=== PATIENT | male | born 1985 | race Caucasian/White ===

== ENCOUNTER 2022-09-28 06:58 | Emergency (ER) | payer MEDICAID, SELFPAY ==
[2022-09-28 07:00] VITALS: BP 136/84; PULSE 66; RESP 15; TEMP 36; O2SAT 96; BMI 32.8
--- NOTE | 2022-09-28 07:19 | EDS_ITS ---
HPI History of Present Illness Chief Complaint: General Illness Informant: patient Onset/Context/Timing Onset: Weeks (1) Context: Gradual Onset Timing: Intermittent Quality: Numbness Location: Bilateral arms Worsened by: Nothing Relieved by: Nothing Narrative Narrative: Patient presents with bilateral arm numbness dizziness, and nausea that has been getting worse over the past 2 days. Patient states he had numbness in his left arm that started approximately 1 week ago. Patient states it is now spread to his right arm for the past couple days. Patient states it is intermittent. Patient states nothing makes it better nothing makes it worse. Patient states he feels lightheaded and dizzy. Patient states he had 1 episode of vomiting a couple days ago. Patient denies any hematemesis or coffee-ground emesis. Patient denies any weakness. Patient denies any headaches. Patient denies any visual changes. [facility] Medical History (Updated 09/28/22 @ 09:[address] Edwin Hayes DO) Asthma Dental infection Home Medications NK 09/28/22 [History Last Taken Unknown] Allergy/AdvReac Type Severity Reaction Status Date / Time amoxicillin Allergy Rash Verified 09/28/22 06:59 Family History Other Asthma Surgical History no surgical history no surgical history Social History Smoking Status: Never smoker alcohol intake: current ROS ROS ED Constitutional Constitutional ED: Denies chills or fever(s) Eyes Eyes: Denies blurry vision or change in vision ENT ENT ED: Denies rhinorrhea or sore throat Cardiovascular Cardiovascular: Denies chest pain or palpitations Respiratory/Chest Respiratory/Chest: Denies cough or dyspnea Gastrointestinal Gastrointestinal: Reports nausea and vomiting Genitourinary Genitourinary ED: Denies dysuria or hematuria Musculoskeletal Musculoskeletal: Denies back pain or neck pain Integumentary Denies abscess or rash Neurologic Neurologic: Reports paresthesias RUE and LUE; Denies headache(s) or weakness Allergic/Immunologic Allergic/Immunologic ED: Denies mouth swelling or urticaria EXAM Physical Exam Const Vital Signs: 09/28/22 07:00 09/28/22 07:03 Temperature 96.8 F L Temperature Source Temporal Pulse Rate 66 Respiratory Rate 15 Respiratory Effort Normal Respiratory Pattern Normal Blood Pressure 136/84 H Blood Pressure Mean 101 Pulse Ox 96 Oxygen Delivery Method Room Air Positive well nourished and well developed General Appearance ED: well developed HEENT Reports moist mucous membranes Neck supple and no JVD Resp normal respiratory effort and clear to auscultation bilaterally Cardio regular rate, regular rhythm and no murmurs GI normal to inspection, nondistended, normoactive bowel sounds and non-tender Palpation: soft Extremity normal to inspection General Extremety ED: Negative for edema or tenderness General Extremity: Negative for edema Neuro oriented x3, CN's II-XII intact bilaterally and no sensory deficits noted Sensorium / Orientation: alert Motor Exam: strength 5/5 throughout Psych mental status grossly normal Skin no rashes or lesions noted MDM MDM MDM Narrative Medical decision making narrative: Differential diagnosis includes electrolyte abnormality, neuropathy, radiculopathy, cervical myelopathy, anemia, and infection. Since his paresthesias are in a stocking glove distribution, I do not feel this is from an acute stroke. CBC will be obtained to assess for leukocytosis and anemia. Comprehensive metabolic profile will be obtained to assess for renal function, hepatic function, and electrolyte abnormality. CT scan of the cervical spine will be obtained to assess for cervical myelopathy and radiculopathy. Lab Data Attestation: I reviewed the patient's lab results. Lab results narrative: CBC was reviewed and was within normal limits. PT was INR was reviewed and was normal. Comprehensive metabolic profile was reviewed and was essentially within normal limits. Labs: Laboratory Results - last 24 hr 09/28/22 09/28/22 09/28/22 07:40 07:40 07:40 WBC 5.8 RBC 4.83 Hgb 14.6 Hct 44.3 MCV 91.7 MCH 30.2 MCHC 33.0 RDW Std Deviation 40.3 RDW Coeff of Shorty 12.1 Plt Count 235 MPV 9.9 Immature Gran % (Auto) 0.500 Neut % (Auto) 41.0 L Lymph % (Auto) 44.4 H [place] % (Auto) 9.4 Eos % (Auto) 4.2 Baso % (Auto) 0.5 Absolute Neuts (auto) 2.4 Absolute Lymphs (auto) 2.56 Nucleated RBC % 0 PT 12.9 INR 1.0 Sodium 139 Potassium 4.4 Chloride 106 Carbon Dioxide 28.0 Anion Gap 5 BUN 20 H Creatinine 1.20 Estim Creat Clear Calc 90.71 Est GFR (MDRD) Af Amer 86 Est GFR (MDRD) Non-Af 71 BUN/Creatinine Ratio 16.7 Glucose 111 H Calcium 8.8 Total Bilirubin 0.50 AST 23 ALT 28 Alkaline Phosphatase 64 Total Protein 7.4 Albumin 3.9 Globulin 3.5 Albumin/Globulin Ratio 1.1 Radiography Diagnostic Testing: Clinical Impression(s) from Imaging Studies Cervical Spine CT 09/28/22 07:25 IMPRESSION: Posterior spondylosis at the C5-C6 and C6-C7 levels central and to the left-sided midline as described. The bilateral neural foramina are patent. Electronically Signed: Sundeep Lin MD at 8:23 EDT , CT scan of the cervical spine was obtained. There is no acute fracture. There is some degenerative changes at C5-C6 and C6-C7 in the midline and to the left. The neuroforamina are intact. This was interpreted by the radiologist and was also independently reviewed by myself. Treatment and Re-Evaluation :: Patient was given IV fluids. Patient is feeling better on reevaluation. Patient was advised of his findings. Patient was instructed to take Tylenol or ibuprofen as needed for any pain. Patient was instructed to follow-up with his primary care physician in 5 to 7 days. Patient was also advised that he may need to see a bioinformatics support specialist regarding the degenerative changes of the cervical spine. Patient understands and is agreeable with the plan. All questions were answered. Discharge Plan Triage Chief Complaint: General Illness ED Provider: Edwin Hayes Dx/Rx/DC Orders Clinical Impression: Paresthesias, Dizziness, nonspecific Instructions: ED Paraesthesias Prescriptions: No Action NK Primary Care Provider: Care Physician,No Primary Referrals: Care Physician,No Primary [Primary Care Provider] - 5-7 Days Disposition Disposition: Home, Self Care
--- NOTE | 2022-09-28 07:25 | CT_ITS ---
STUDY: CT CERVICAL SPINE WITHOUT CONTRAST REASON FOR EXAM: Male, 37 years old. 2 a day history left arm numbness. RADIATION DOSAGE (If Supplied By Facility): CTDIvol = ( 28.51 ) mGy, DLP = ( 667.66 ) mGycm TECHNIQUE: High resolution transaxial imaging was performed without contrast material. Sagittal and coronal images were reconstructed. Individualized dose optimization techniques were used for this CT. COMPARISON: None FINDINGS: Normal craniovertebral junction. Normal anterior atlantoaxial articulation. Normal odontoid process. There is straightening of the normal cervical lordosis. Normal vertebral bodies and posterior osseous elements. C2-3: Normal endplates. Normal disc height and morphology. Normal central canal and intervertebral neuroforamina. C3-4: Normal endplates. Normal disc height and morphology. Normal central canal and intervertebral neuroforamina. C4-5: Normal endplates. Normal disc height and morphology. Normal central canal and intervertebral neuroforamina. C5-6: Moderate size posterior spondylosis central and to the left side of the midline causing deformity of the thecal sac. C6-7: Moderate size central and left lateral posterior spondylosis causing deformity of the thecal sac. The neural foramina are patent. C7-T1: Normal endplates. Normal disc height and morphology. Normal central canal and intervertebral neuroforamina. Normal visualized soft tissue structures. CT/Spine Cervical without Contras IMPRESSION: Posterior spondylosis at the C5-C6 and C6-C7 levels central and to the left-sided midline as described. The bilateral neural foramina are patent. Electronically Signed: Sundeep Lin MD at 8:23 EDT ,
[2022-09-28] MEDS: 0.9% Normal Saline 1,000 ML 1000 ML IV (07:37)
[2022-09-28 07:52] LABS: Absolute Lymphocyte Count 2.56 X10^3/uL (0.83-4.51); Absolute Neutrophil Count 2.4 X10^3/uL (2.0-7.7); Basophil# 0.03 X10^3/uL; Basophil% 0.5 % (0-1); Eosinophil# 0.24 X10^3/uL; Eosinophils% 4.2 % (0-5); Hematocrit 44.3 % (40-54); Hemoglobin 14.6 g/dL (13.0-16.5); Lymphocyte # 2.56 X10^3/ul (0.83-4.51); Lymphocyte % 44.4 % (19-41); Mean Corpuscular Hgb 30.2 pg (27.0-32.0); Mean Corpuscular Volume 91.7 fL (80-94); Mean Platelet Vol. 9.9 fl (6.2-12.0); Monocyte# 0.54 X10^3/uL; Monocyte% 9.4 % (0-10); NRBC Flagged by Analyzer 0 % (0-5); Neutrophil # 2.37 X10^3/uL (2.7-7.7); Platelet Count 235 K/mm3 (150-450); RBC Distribution Width CV 12.1 % (11.6-14.6); RBC Distribution Width SD 40.3 fl (35.1-43.9); Red Blood Count 4.83 M/mm3 (4.6-6.2); White Blood Count 5.8 K/mm3 (4.4-11.0)
[2022-09-28 08:02] LABS: Prothrombin Time (Protime)PT. 12.9 SECONDS (11.7-14.9)
[2022-09-28 08:07] LABS: ALB/GLOB Ratio 1.1 RATIO (0.9-2.4); AST(SGOT) 23 U/L (15-37); Alanine Aminotransfer ALT/SGPT 28 U/L (16-61); Albumin, Serum 3.9 g/dL (3.2-5.0); Alkaline Phosphatase 64 U/L (45-117); Anion Gap 5 (5-15); BUN 20 mg/dL (7-18); BUN/Creat Ratio 16.7 RATIO (10-20); Calcium,Total 8.8 mg/dL (8.5-10.1); Chloride 106 mmol/L (98-107); EST Glomerular Filtration Rate 71 mL/min (>60); Est Glom Filt Rate - Afr Amer 86 mL/min (>60); Estimated Creatinine Clearance 90.71 ml/min; Globulin 3.5 g/dL (2.2-4.2); Glucose 111 mg/dL (74-106); Potassium 4.4 mmol/L (3.5-5.1); Protein, Total 7.4 g/dL (6.4-8.2); Sodium Level 139 mmol/L (136-145)
[2022-09-28 09:48] VITALS: BP 124/62
== END 2022-09-28 09:49 | disposition home or self-care (01) ==
PROVIDERS: Emergency Provider Emergency Medicine; Visit Provider Emergency Medicine
DX: R20.2 Paresthesia of skin (principal); R42 Dizziness and giddiness
CPT/HCPCS: 72125; 80053; 85025; 85610; 96360; 99284; J7030; A4216